=== PATIENT | female | born 1985 ===

== ENCOUNTER 2017-07-17 13:19 | Emergency (ER) | payer SELFPAY ==
[2017-07-17 13:19] VITALS: BMI 24.1
[2017-07-17 14:06] VITALS: BP 128/76; PULSE 69; RESP 18; TEMP 97.7; O2SAT 99
--- NOTE | 2017-07-17 15:51 | ED PDOC ---
HPI: General Adult Time Seen by Provider: 07/17/17 14:39 Chief Complaint (Nursing): Abnormal Skin Integrity Chief Complaint (Provider): Abnormal Skin Integrity History Per: Patient History/Exam Limitations: no limitations Onset/Duration Of Symptoms: Days (x 4) Current Symptoms Are (Timing): Still Present Additional Complaint(s): 31 year old female presents to the ED with a painful, erythematous mass on her right armpit for the last 4 days. Patient reports feeling febrile, but has not taken temperature. She took Motrin for pain with her last dose being on Monday. Denies trauma, history of DM, numbness and tingling. PMD: none provided Past Medical History Reviewed: Historical Data, Nursing Documentation, Vital Signs Vital Signs: Last Vital Signs Temp 97.7 F 07/17/17 14:03 Pulse 69 07/17/17 14:03 Resp 18 07/17/17 14:03 BP 128/76 07/17/17 14:03 Pulse Ox 99 07/17/17 16:00 - Medical History PMH: No Chronic Diseases Denies: Diabetes - Surgical History Surgical History: No Surg Hx - Family History Family History: States: Unknown Family Hx - Home Medications Home Medications: Ambulatory Orders Medication Instructions Recorded Ibuprofen [Motrin Tab] 800 mg PO PRN PRN 02/02/16 Methocarbamol [Robaxin] 500 mg PO Q6 PRN 02/02/16 oxyCODONE/Acetaminophen [Percocet 5 - 325 mg PO Q4 PRN 02/02/16 5/325 mg Tab] Cephalexin [cephalexin] 500 mg PO Q6 #28 cap 07/17/17 Ibuprofen [Motrin Tab] 600 mg PO Q6 PRN #12 tab 07/17/17 Sulfamethoxazole/Trimethoprim 2 tab PO BID #28 tab 07/17/17 [Bactrim DS 800 mg-160 mg] - Allergies Allergies/Adverse Reactions: Allergies Allergy/AdvReac Type Severity Reaction Status Date / Time No Known Allergies Allergy Verified 07/17/17 14:03 Review of Systems ROS Statement: Except As Marked, All Systems Reviewed And Found Negative Skin: Positive for: Other (painful erythematous mass on right armpit ) Physical Exam - Reviewed Nursing Documentation Reviewed: Yes Vital Signs Reviewed: Yes - Physical Exam Appears: Positive for: Non-toxic, No Acute Distress Head Exam: Positive for: ATRAUMATIC, NORMAL INSPECTION, NORMOCEPHALIC Skin: Positive for: Normal Color Eye Exam: Positive for: Normal appearance, PERRL Extremity: Positive for: Other (1 x 3 cm tender, indurated, non-fluctuant mass with mild surrounding erythema in right axillary area. ). Negative for: Deformity (or lymphadenopathy ) Neurologic/Psych: Positive for: Alert, Oriented (x 3) - ECG O2 Sat by Pulse Oximetry: 99 (RA) Pulse Ox Interpretation: Normal Medical Decision Making Medical Decision Making: In sterile conditions, wound was aspirated. No purulent material was obtained. --Patient was advised to return to ED in 48 hours for wound check and is to come back immediately if temperature of 104 degrees or higher develops. --Patient verbalized understanding of follow up and care instructions. [employer]rober #[id number] was used. Scribe Attestation: Documented by Genevieve Bragg, acting as a scribe for Thomas Cheung PA-C Provider Scribe Attestation: All medical record entries made by the Scribe were at my direction and personally dictated by me. I have reviewed the chart and agree that the record accurately reflects my personal performance of the history, physical exam, medical decision making, and the department course for this patient. I have also personally directed, reviewed, and agree with the discharge instructions and disposition. Disposition - Clinical Impression Clinical Impression: Cellulitis, Abscess - Patient ED Disposition Is Patient to be Admitted: No - Disposition Referrals: [facility] [Outside] [facility] [Outside] Disposition: Routine/Home Disposition Time: 15:30 Condition: STABLE Additional Instructions: Return to ED in 48 hours for wound check. Return to ED immediately if temperature of 100.4 or above develops or if redness worsens. Prescriptions: Cephalexin [cephalexin] 500 mg PO Q6 #28 cap Ibuprofen [Motrin Tab] 600 mg PO Q6 PRN #12 tab PRN Reason: pain Sulfamethoxazole/Trimethoprim [Bactrim DS 800 mg-160 mg] 2 tab PO BID #28 tab Instructions: Boil (DC), Cellulitis (Skin Infection), Adult (DC) Forms: [employer] (Sao T[place]an), [facility] ED School/Work Excuse Print Language: GUYANESE
== END 2017-07-17 16:46 | disposition home or self-care (01) ==
LOC: H.ER 13:19
DX: L03.111 Cellulitis of right axilla (principal)

== ENCOUNTER 2017-07-19 13:02 | Emergency (ER) | payer SELFPAY ==
[2017-07-19 13:02] VITALS: BMI 24.1
[2017-07-19 13:08] VITALS: BP 125/78; PULSE 68; RESP 16; TEMP 98.1; O2SAT 98
--- NOTE | 2017-07-19 13:42 | ED PDOC ---
HPI: Wound Care - HPI Time Seen by Provider: 07/19/17 13:11 Chief Complaint (Nursing): Wound Check Chief Complaint (Provider): Wound Check History Per: Patient, [employer] Hel[employer] (Marina Mitchell, Charge nurse, at bedside for venezuelan translation) Exam Limitations: no limitations Additional Complaint(s): 31 year old female presents to the ED for wound check. Patient was seen 2 days ago for cellulitis and abscess to right axillary region. She states I&D was done and she was told to come back today for wound re-check. Patient states packing already fell out yesterday. She is taking keflex and bactrim as prescribed. Overall she states area does feel better. No fever or chills. PMD: none Past Medical History Reviewed: Historical Data, Nursing Documentation, Vital Signs Vital Signs: Last Vital Signs Temp 98.1 F 07/19/17 13:06 Pulse 68 07/19/17 13:06 Resp 16 07/19/17 13:06 BP 125/78 07/19/17 13:06 Pulse Ox 98 07/19/17 13:06 - Medical History PMH: No Chronic Diseases - Family History Family History: States: No Known Family Hx - Living Arrangements Living Arrangements: With Family - Social History Current smoker - smoking cessation education provided: No Alcohol: None Drugs: Denies - Home Medications Home Medications: Ambulatory Orders Medication Instructions Recorded Ibuprofen [Motrin Tab] 800 mg PO PRN PRN 02/02/16 Methocarbamol [Robaxin] 500 mg PO Q6 PRN 02/02/16 oxyCODONE/Acetaminophen [Percocet 5 - 325 mg PO Q4 PRN 02/02/16 5/325 mg Tab] Cephalexin [cephalexin] 500 mg PO Q6 #28 cap 07/17/17 Ibuprofen [Motrin Tab] 600 mg PO Q6 PRN #12 tab 07/17/17 Sulfamethoxazole/Trimethoprim 2 tab PO BID #28 tab 07/17/17 [Bactrim DS 800 mg-160 mg] Clindamycin [Cleocin] 300 mg PO QID #28 cap 07/19/17 Ibuprofen [Motrin Tab] 800 mg PO Q8 PRN #20 tab 07/19/17 - Allergies Allergies/Adverse Reactions: Allergies Allergy/AdvReac Type Severity Reaction Status Date / Time No Known Allergies Allergy Verified 07/19/17 13:06 Review of Systems ROS Statement: Except As Marked, All Systems Reviewed And Found Negative Constitutional: Negative for: Fever, Chills Skin: Positive for: Other (wound check of abscess to right axillary region) Physical Exam - Reviewed Nursing Documentation Reviewed: Yes Vital Signs Reviewed: Yes - Physical Exam Appears: Positive for: Well, Non-toxic, No Acute Distress Head Exam: Positive for: ATRAUMATIC, NORMAL INSPECTION, NORMOCEPHALIC Skin: Positive for: Normal Color. Negative for: Rash Eye Exam: Positive for: Normal appearance Extremity: Positive for: Other (Indurated localized cellulitis noted to right axillary region, no central pointing or palpable fluid collection, minimal tenderness to palpation, no erythematous streaking) Neurologic/Psych: Positive for: Alert, Oriented (x3) - ECG O2 Sat by Pulse Oximetry: 98 (RA) Pulse Ox Interpretation: Normal Medical Decision Making Medical Decision Making: Time: 1310 Initial Impression: 31 year old female here for wound check Initial Plan: No further I&D indicated. Patient was advised to continue with Bactrim and discontinue Keflex. Prescriptions given for clindamycin and Motrin. Advised warm compresses with Epsom salts to affected area and wound recheck in 3-4 days. Scribe Attestation: Documented by Joan Estrada, acting as a scribe for Liza Hidalgo PA-C Provider Scribe Attestation: All medical record entries made by the Scribe were at my direction and personally dictated by me. I have reviewed the chart and agree that the record accurately reflects my personal performance of the history, physical exam, medical decision making, and the department course for this patient. I have also personally directed, reviewed, and agree with the discharge instructions and disposition. Disposition - Clinical Impression Clinical Impression: Encounter for wound re-check, Cellulitis - Patient ED Disposition Is Patient to be Admitted: No Counseled Patient/Family Regarding: Diagnosis, Need For Followup, Rx Given - Disposition Referrals: [facility] [Outside] Disposition: Routine/Home Disposition Time: 14:00 Condition: STABLE Additional Instructions: STOP TAKING KEFLEX/CEPHALEXIN. CONTINUE WITH BACTRIM DS/SULFAMETHAZOLE, TRIMETHROPRIM AND TAKE NEW MEDS DIRECTED. FOLLOW UP WITH CLINIC OR PRIMARY CARE DOCTOR IN 2-3 DAYS. Prescriptions: Clindamycin [Cleocin] 300 mg PO QID #28 cap Ibuprofen [Motrin Tab] 800 mg PO Q8 PRN #20 tab PRN Reason: Pain, Moderate (4-7) Instructions: Cellulitis (Skin Infection), Adult (DC) Forms: [employer] (Khmer) Print Language: GEORGIAN
== END 2017-07-19 14:08 | disposition home or self-care (01) ==
LOC: H.ER 13:02
DX: L03.111 Cellulitis of right axilla (principal)